=== PATIENT | male | born 2000 | race Caucasian/White ===

== ENCOUNTER 2023-09-22 14:14 | Outpatient (REF) | payer OTHER, SELFPAY ==
--- NOTE | ~2023-09-22 | MR_ITS ---
MR CERVICAL SPINE WITHOUT CONTRAST CLINICAL INFORMATION: Injury of the neck with tightness and pain. COMPARISON: None available. TECHNIQUE: MRI of the cervical spine was obtained using routine sequences without contrast. FINDINGS: Cervical alignment is normal. The vertebral body heights are maintained. The disc volumes are preserved. There is no bone marrow edema. There are no acute fractures. The craniocervical junction is unremarkable. There are no cord signal changes. Major ligaments are intact. There are no epidural collections. The partially imaged intracranial compartment is unremarkable. No blood products are identified on the GRE series. There are no cervical disc herniations. At C5-C6, mild right-sided uncovertebral joint spurring results in mild right-sided foraminal encroachment. No severe central canal stenosis and no severe foraminal stenosis within the cervical spine. MR/MR cervical spine wo con IMPRESSION: - There is no evidence of acute cervical spine injury. - At C5-C6, mild right-sided uncovertebral joint spurring results in mild right-sided foraminal encroachment. No severe central canal stenosis and no severe foraminal stenosis within the cervical spine. - There are prominent jugulodigastric lymph nodes bilaterally that may be reactive.
== END 2023-09-22 14:15 | disposition home or self-care (01) ==
LOC: HO.MRI 14:14
PROVIDERS: PCP Family Medicine Sports Medicine; Visit Provider Family Medicine Sports Medicine
DX: S19.9XXA Unspecified injury of neck, initial encounter (principal)
CPT/HCPCS: 72141

== ENCOUNTER 2024-01-13 12:56 | Outpatient (REF) | payer OTHER, SELFPAY ==
--- NOTE | ~2024-01-13 | MR_ITS ---
EXAMINATION: MR KNEE WITHOUT CONTRAST, LEFT CLINICAL INFORMATION: Pain COMPARISON: None available. TECHNIQUE: MRI of the knee without contrast was performed using routine sequences on a high-field scanner. FINDINGS: MENISCI: Medial Meniscus: Intact Lateral Meniscus: Intact LIGAMENTS: Cruciate: Abnormal T2 signal in ACL, with laxity and irregularity of the ligament. This may be some intact fibers present. Findings have the appearance of a high-grade/full-thickness tear. Intact PCL. Collateral: Intact EXTENSOR MECHANISM: Intact ARTICULAR CARTILAGE/BONE: Patellofemoral Compartment: No significant chondral loss. Medial Compartment: No significant chondral loss Lateral Compartment: Edema from bone contusion in the posterior lateral tibial plateau, lateral aspect lateral femoral condyle/terminal sulcus. No significant chondral loss. JOINT FLUID AND BURSAE: Small effusion. No significant Bell's cyst. Popliteus muscle and tendon are intact. MR/MR knee LT wo con IMPRESSION: 1. ACL abnormal findings consistent with high-grade/full-thickness tear. 2. Bone contusion in the posterior lateral tibial plateau, lateral aspect lateral femoral condyle/terminal sulcus. 3. Small effusion.
== END 2024-01-13 12:57 | disposition home or self-care (01) ==
LOC: HO.MRI 12:56
PROVIDERS: Visit Provider Family Medicine
DX: M25.562 Pain in left knee (principal)
CPT/HCPCS: 73721